=== PATIENT | female | born 1975 | race Caucasian/White ===

== ENCOUNTER 2018-06-17 16:00 | Emergency (ER) | payer OTHER ==
[~2018-06-17] VITALS: Ht 172.7 cm; Wt 82.5 kg
[2018-06-17] MEDS ORDERED: Prednisone20 MG PO (16:14)
== END 2018-06-17 16:22 | disposition home or self-care (01) ==
LOC: ER 16:00
DX: T63.441A Toxic effect of venom of bees, accidental (unintentional), initial encounter (principal); Z91.030 Bee allergy status
CPT/HCPCS: 99282